=== PATIENT | male | born 1945 | race Caucasian/White ===

== ENCOUNTER → 2019-03-23 08:01 | Outpatient (CLI) | payer MEDICARE ==
[2013-11-20 05:57] VITALS: BMI 24.9
[~2019-03-23 08:01] MED LIST: BYSTOLIC10 MG PO; CATAPRES0.1 MG PO; PHENERGAN25 M1 PO; TOPROL XL100 MG PO; ZANTAC150 MG PO; ZESTORETIC 20/21 TAB PO
== END | disposition home or self-care (01) ==
LOC: D.CT
PROVIDERS: ATTEND Legal Medicine
DX: J18.9 Pneumonia, unspecified organism (principal)